=== PATIENT | female | born 1975 | race Caucasian/White ===

== ENCOUNTER 2024-05-22 07:38 | Emergency (ER) | payer BC ==
[2024-05-22 08:16] VITALS: BMI 33.5
[2024-05-22] MEDS ORDERED: MECLIZINE HCL 25 MG TABLET (FP) ONE (08:25)
[2024-05-22] MEDS: MECLIZINE HCL 25 MG TABLET (FP) PO ONE (08:32)
[2024-05-22] MEDS: SODIUM CHLORIDE 500 ML IV STA (08:33)
[2024-05-22 08:38] LABS: BASO % 0.9 % (0-2.0); EOS % 1.6 % (0-4.5); HEMOGLOBIN 11.9 GM/dL (10.7-15.3); LYMPH % 42.9 % (8-40); MCH 26.5 pg (25.7-33.7); MEAN CELL VOLUME 80.4 fl (80-96); MEAN PLT VOLUME 8.1 fl (7.5-11.1); MONO % 6.8 % (3.8-10.2); NEUT % 47.8 % (42.8-82.8); PLATELET COUNT 293 10^3/uL (134-434); RBC 4.47 M/mm3 (3.60-5.2); RDW 16.6 % (11.6-15.6); WHITE BLOOD COUNT 3.5 K/mm3 (4.0-10.0)
[2024-05-22 09:03] LABS: POTASSIUM 4.2 mmol/L (3.5-5.1)
[2024-05-22 09:05] LABS: ALBUMIN 3.8 g/dl (3.4-5.0); CALCIUM 9.3 mg/dL (8.5-10.1)
[2024-05-22 09:06] LABS: BLOOD UREA NITROGEN 15.3 mg/dL (7-18)
[2024-05-22 09:09] LABS: CREATININE 0.7 mg/dL (0.55-1.3)
[2024-05-22 09:10] LABS: BILIRUBIN,TOTAL 0.4 mg/dL (0.2-1); TOT PROT 7.4 g/dl (6.4-8.2)
[2024-05-22 09:26] VITALS: RESP 16
[2024-05-22] MEDS: ACETAMINOPHEN 325 MG TABLET (FP) PO ONE (11:25)
[2024-05-22 11:36] VITALS: BP 136/97; PULSE 71; TEMP 98
== END 2024-05-22 11:37 | disposition home or self-care (01) ==
LOC: JER 07:38
PROC: 3E0337Z Introduction of Electrolytic and Water Balance Substance into Peripheral Vein, Percutaneous Approach (ICD-10-PCS; principal; 2024-05-22)
DX: R42 Dizziness and giddiness (principal); R00.0 Tachycardia, unspecified; R00.2 Palpitations; M79.662 Pain in left lower leg
CPT/HCPCS: 36415; 70450-TC; 80053; 84703; 85025; 93005; 93010; 99284-25